=== PATIENT | female | born 1950 | race Caucasian/White ===

== ENCOUNTER → 2017-10-09 16:24 | Outpatient (CLI) | payer MEDICARE, OTHER, SELFPAY ==
--- NOTE | 2017-10-09 | DI.MRI.S_ITS ---
PROCEDURE: MR ANKLE LT WO CON INDICATIONS: 67 year-old female with left Achilles tendon region pain for 2 months. TECHNIQUE: Noncontrast sagittal T1 spin echo and T2 fast spin echo with fat saturation, axial proton density fast spin echo and T2 fast spin echo with fat saturation, coronal T1 spin echo and T2 fast spin echo with fat saturation through the ankle/hindfoot. COMPARISON: None available. FINDINGS: Image quality: There is metallic susceptibility artifact from distal fibular fracture fixation hardware, obscuring adjacent bony and soft tissue structures. Bones and joints: No bone marrow contusions or acute fractures. Patient is status post remote distal fibular fracture fixation. No hindfoot coalitions. No osteochondral injuries of the visualized talar dome; medial talar dome is obscured by metallic susceptibility artifact. There is mild calcaneocuboid joint degeneration. No pathologic joint effusions. Medial structures: The posterior tibialis, flexor digitorum longus, and flexor hallucis longus tendons are intact. The posterior tibial neurovascular bundle appears normal within the tarsal tunnel, without extrinsic mass effect. The deep layer (anterior and posterior tibiotalar ligaments) and superficial layer (tibionavicular, tibiospring, and tibiocalcaneal ligaments) of the deltoid ligament appear normal. The spring ligament components (superomedial calcaneonavicular, medioplantar oblique calcaneonavicular, and inferoplantar longitudinal ligaments) are intact. Lateral structures: The anterior talofibular, calcaneofibular, and posterior talofibular ligaments appear intact. More superiorly, the anterior and posterior tibiofibular ligaments appear intact, as is the intermalleolar ligament. The tibiofibular syndesmosis is normal in width at 2 mm or less. The peroneus longus and brevis tendons demonstrate normal location and morphology. Adjacent bony peroneal tubercle and retrotrochlear prominence are normal in size. The sinus tarsi demonstrates normal fatty signal, without edema, fibrosis, or cyst formation. Visualized sinus tarsi components (cervical ligament, interosseous talocalcaneal ligament, roots of the inferior extensor retinaculum) appear normal. The calcaneonavicular and calcaneocuboid components of the bifurcate ligament appear intact. The dorsal calcaneocuboid ligament appears intact. Anterior structures: The tibialis anterior, extensor hallucis longus, and extensor digitorum longus tendons appear intact. The dorsal talonavicular ligament appears intact. Posterior and plantar structures: There is fusiform thickening of the distal Achilles tendon. On axial image 21, there is low-grade intrasubstance partial thickness tear of the lateral Achilles tendon fibers, centered 5.6 cm superior to its calcaneal insertion. Medial and lateral bands of the plantar fascia are of normal thickness. No abductor digiti quinti muscle atrophy to suggest Ross neuropathy. IMPRESSION: 1. Low-grade partial-thickness intrasubstance tear of the distal Achilles tendon, on a background of tendinopathy. 2. Mild calcaneocuboid joint degeneration. 3. Remote distal fibular shaft fracture fixation. Dictated by: Russ Chao M.D. on 10/09/2017 at 17:35 Approved by: Russ Chao M.D. on 10/09/2017 at 17:42
== END ==
PROVIDERS: PCP Family Medicine; Visit Provider Podiatrist
DX: M25.572 Pain in left ankle and joints of left foot (principal); S86.012A Strain of left Achilles tendon, initial encounter
CPT/HCPCS: 73721